=== PATIENT | male | born 1970 | race Caucasian/White ===

== ENCOUNTER 2018-05-01 21:23 | Emergency (ER) | payer BC ==
[2018-05-01 21:33] VITALS: BP 167/75; PULSE 60; RESP 18; TEMP 98.2
[2018-05-01] MEDS ORDERED: PROPARACAINE 0.5% OPHTH DROPS 15 ML BTL BOTH EYES STA (21:33)
[2018-05-01] MEDS ORDERED: ERYTHROMYCIN 5 MG/GM OPHTH OINT 3.5 GM TUBE BOTH EYES STA (21:35)
[2018-05-01] MEDS ORDERED: DIPH,PERTUS(ACELL)TETVAC-LF 0.5 ML VIAL IM ONE (22:06)
--- NOTE | 2018-05-01 22:26 | ED ---
Eye Problem HPI - General Chief complaint: Eye Problems Stated complaint: fb in eye Time Seen by Provider: 05/01/18 21:35 Source: patient Mode of arrival: ambulatory Limitations: no limitations - History of Present Illness Initial comments: [id number] male presents prescription with chief complaint left eye pain. Patient reports he was working with metal and believes a small piece of metal broke off of stools and came up into his left eye. He reports that he has had eye drainage pain since then. Patient reports no pain with extraocular eye movements. He denies wearing contacts. He was not wearing safety glasses at the time. - Related Data Home Medications Medication Instructions Recorded Confirmed No Known Home Medications 05/01/18 05/01/18 Allergies Allergy/AdvReac Type Severity Reaction Status Date / Time Penicillins Allergy Unknown Verified 05/01/18 21:33 Review of Systems ROS Statement: Those systems with pertinent positive or pertinent negative responses have been documented in the HPI. ROS Other: All systems not noted in ROS Statement are negative. Past Medical History Past Medical History: No Reported History History of Any Multi-Drug Resistant Organisms: None Reported Past Surgical History: Ear Surgery, Hernia Repair, Orthopedic Surgery Past Psychological History: No Psychological Hx Reported Smoking Status: Current every day smoker Past Alcohol Use History: Occasional Past Drug Use History: None Reported General Exam - General Exam Comments Initial Comments: 47-year-old male. Alert and oriented. Patient appears in no significant distress. Limitations: no limitations General appearance: alert, in no apparent distress Head exam: Present: atraumatic, normocephalic, normal inspection Eye exam: Present: normal appearance, PERRL, EOMI, conjunctival injection (Left eye conjunctival injection), other (Corneal abrasion noted on fluorescein eye exam. Area measures from the 12:00 to 4 o'clock position of the pupil.). Absent: scleral icterus, periorbital swelling ENT exam: Present: normal exam, mucous membranes moist Neck exam: Present: normal inspection. Absent: tenderness, meningismus, lymphadenopathy Respiratory exam: Present: normal lung sounds bilaterally. Absent: respiratory distress, wheezes, rales, rhonchi, stridor Cardiovascular Exam: Present: regular rate, normal rhythm, normal heart sounds. Absent: systolic murmur, diastolic murmur, rubs, gallop, clicks GI/Abdominal exam: Present: soft, normal bowel sounds. Absent: distended, tenderness, guarding, rebound, rigid Course Vital Signs 05/01/18 21:31 Temperature 98.2 F Pulse Rate 60 Respiratory 18 Rate Blood Pressure 167/75 O2 Sat by Pulse 98 Oximetry Medical Decision Making - Medical Decision Making Patient is a 47-year-old male who presents today with left eye pain. He reports he had a piece of metal tool come off and hit his eye. There is no evidence of retained foreign body after lifting the eyelids. Fluorescein eye exam does show corneal abrasion from the 12:00 to 4 o'clock position. The eye does have significant injection. After instilling proparacaine drops Patient had immediate relief. I discussed that putting the Patient on antibiotic eye ointment. He was also given updated tetanus shot. Patient has been advised follow-up promptly with ophthalmology. All questions answered and return parameters were discussed. Disposition Clinical Impression: Corneal abrasion, left Disposition: HOME SELF-CARE Condition: Good Instructions: Corneal Abrasion (ED) Additional Instructions: Patient advised to apply the eye ointment to the eye every 4 hours. Follow-up with ophthalmology. If symptoms continue persist or worsen please return to emergency department for reevaluation. Follow-up with ophthalmology on Friday. Is patient prescribed a controlled substance at d/c from ED?: No Referrals: Jovanny Salinas MD [Primary Care Provider] - 1-2 days Mary Kelly MD [STAFF PHYSICIAN] - 1-2 days Time of Disposition: 22:26
== END 2018-05-01 22:50 | disposition home or self-care (01) ==
LOC: EC 21:23
DX: S05.02XA Injury of conjunctiva and corneal abrasion without foreign body, left eye, initial encounter (principal); F17.200 Nicotine dependence, unspecified, uncomplicated; Z23 Encounter for immunization; Z88.0 Allergy status to penicillin; W22.8XXA Striking against or struck by other objects, initial encounter; Y92.009 Unspecified place in unspecified non-institutional (private) residence as the place of occurrence of the external cause
CPT/HCPCS: 90471; 90715; 99282

== ENCOUNTER → 2018-05-06 | Outpatient (CLI) | payer BC ==
--- NOTE | 2018-05-06 18:13 | CT ---
EXAMINATION TYPE: CT orbits wo con DATE OF EXAM: 05/06/2018 COMPARISON: None HISTORY: left eye pain, r/o fb following injury [address] DLP: 429.4 mGycm Automated exposure control for dose reduction was used. FINDINGS: The orbital margins are intact. There is no evidence of retro-orbital mass. There is mucosal thickeni ng in the frontal sinuses. There is no evidence of a blowout fracture. I see no evidence of radiopaqu e foreign body. Zygomatic arches appear normal. Nasal bone appears intact. IMPRESSION: NO FRACTURE SEEN. MILD FRONTAL SINUSITIS. NO EVIDENCE OF A FOREIGN BODY.
== END | disposition home or self-care (01) ==
LOC: RADXRMAIN 17:44
PROVIDERS: ATTEND Ophthalmology
DX: H44.702 Unspecified retained (old) intraocular foreign body, nonmagnetic, left eye (principal)
CPT/HCPCS: 70480

== ENCOUNTER 2020-08-18 16:31 | Emergency (ER) | payer SELFPAY ==
[2020-08-18 17:51] VITALS: BP 135/86; PULSE 67; RESP 18; TEMP 98
--- NOTE | 2020-08-18 18:02 | ED ---
General Adult HPI - General Chief complaint: Skin/Abscess/Foreign Body Stated complaint: Metal in ear, [facility] Source: patient Mode of arrival: ambulatory Limitations: no limitations - History of Present Illness Initial comments: 50-year-old male presents emergency Department with chief complaint of right ear pain. Patient reports several days ago he was welding and he suspects a hot metal piece went into his right ear. Patient reports gradually his developed some white discharge from his right ear with slight pain when pulling on the auricle. Patient reports today he sneezed and now he can feel ear going in and out of his ear. He reports somewhat of mild pain at this time. Denies any fevers or chills. Denies any pain anterior posterior to the right ear. Denies any posterior auricular swelling or erythema. - Related Data Previous Rx's Medication Instructions Recorded Ciprofloxacin-Hc Otic Susp [Cipro 3 drops RIGHT EAR BID #1 bottle 08/18/20 Hc Otic Suspension] Allergies Allergy/AdvReac Type Severity Reaction Status Date / Time Penicillins Allergy Unknown Verified 08/18/20 17:49 Review of Systems ROS Statement: Those systems with pertinent positive or pertinent negative responses have been documented in the HPI. ROS Other: All systems not noted in ROS Statement are negative. Past Medical History Past Medical History: No Reported History History of Any Multi-Drug Resistant Organisms: None Reported Past Surgical History: Ear Surgery, Hernia Repair, Orthopedic Surgery Past Psychological History: No Psychological Hx Reported Smoking Status: Current every day smoker Past Alcohol Use History: Occasional Past Drug Use History: None Reported General Exam Limitations: no limitations General appearance: alert, in no apparent distress Head exam: Present: atraumatic, normocephalic, normal inspection Eye exam: Present: normal appearance, PERRL, EOMI Pupils: Present: normal accommodation ENT exam: Present: normal exam, normal oropharynx, mucous membranes moist, TM's normal bilaterally. Absent: normal external ear exam (Edematous right external auditory canal with slight white discharge. Ruptured tympanic membrane.) Neck exam: Present: normal inspection, full ROM. Absent: tenderness Respiratory exam: Present: normal lung sounds bilaterally. Absent: respiratory distress Cardiovascular Exam: Present: regular rate, normal rhythm, normal heart sounds Extremities exam: Present: normal inspection, full ROM, normal capillary refill. Absent: tenderness Back exam: Present: normal inspection, full ROM. Absent: tenderness, CVA tenderness (R), CVA tenderness (L) Neurological exam: Present: alert, oriented X3 Psychiatric exam: Present: normal affect, normal mood Skin exam: Present: warm, dry, intact, normal color Course Vital Signs 08/18/20 17:49 Temperature 98 F Pulse Rate 67 Respiratory 18 Rate Blood Pressure 135/86 O2 Sat by Pulse 98 Oximetry Medical Decision Making - Medical Decision Making 50-year-old male presents to emergency Department with a chief complaint of right-sided ear foreign body. On physical examination, ruptured right-sided tympanic membrane. Patient will be discharged with ciprofloxacin otic drops. Advised to follow-up with ENT specialist. Water precautions. Advised to avoid sneezing or Valsalva procedures. Strict return parameters were thoroughly discussed the patient was upsetting agreeable. Case discussed with Dr. Bateman. Disposition Clinical Impression: Perforated tympanic membrane Disposition: HOME SELF-CARE Condition: Stable Instructions (If sedation given, give patient instructions): Ruptured Eardrum (ED) Additional Instructions: Take prescribed medication as directed. Follow with an ENT specialist. Avoid water in the right ear. Attempt not to sneeze. Prescriptions: Ciprofloxacin-Hc Otic Susp [Cipro Hc Otic Suspension] 3 drops RIGHT EAR BID #1 bottle Is patient prescribed a controlled substance at d/c from ED?: No Referrals: Jovanny Salinas MD [Primary Care Provider] - 1-2 days Brennan Ty DO [Doctor of Osteopathic Medicine] - 1-2 days Time of Disposition: 18:01
== END 2020-08-18 18:25 | disposition home or self-care (01) ==
LOC: EC 16:31
DX: H66.91 Otitis media, unspecified, right ear (principal); H72.91 Unspecified perforation of tympanic membrane, right ear; F17.200 Nicotine dependence, unspecified, uncomplicated; Z88.0 Allergy status to penicillin
CPT/HCPCS: 99282

== ENCOUNTER 2020-09-14 07:19 | Day surgery (SDC) | payer OTHER ==
[2020-09-12 12:41] VITALS: BMI 30.4
[~2020-09-14 07:19] MED LIST: CLINDAMYCIN 600 MG in DEXTROSE 5% IN WATER 50 ML IVPB PRN; DEXAMETHASONE SOD PHOSPHATE 4 MG/ML 1 ML VIAL IV PRN; FAMOTIDINE 20 MG/2 ML VIAL IV PRN; ONDANSETRON 4 MG/2 ML VIAL IVP PRN; OXYMETAZOLINE 0.05% NASL SPRAY 1 SPRAY BOTTLE EA NOSTRIL PRN
[2020-09-14] MEDS ORDERED: LACTATED RINGERS 1,000 ML IV ONE (07:56)
[2020-09-14] MEDS ORDERED: LIDOCAINE 1% (10MG/ML) FOR IV START INTRADERMA ONE (07:56)
[2020-09-14] MEDS ORDERED: CLIDINIUM-chlordiazePOXIDE (2.5-5 MG) CAP ONE (08:32)
[2020-09-14] MEDS ORDERED: LIDOCAINE 1% INJ 10MG/ML (20 ML MDV) ONE (08:32)
[2020-09-14] MEDS ORDERED: fentaNYL (PF) 50 MCG/ML 2 ML AMP ONE (08:32)
[2020-09-14] MEDS ORDERED: PROPOFOL 10 MG/ML 20 ML VIAL IV ONE (08:32)
[2020-09-14] MEDS ORDERED: OXYMETAZOLINE 0.05% NASL SPRAY 1 SPRAY BOTTLE MISCELLANE ONE (09:03)
[2020-09-14] MEDS ORDERED: EPINEPHrine 1 MG/ML (MDV) 30 ML VIAL TOPICAL ONE (09:20)
[2020-09-14] MEDS ORDERED: HYDROmorphone 0.5 MG/0.5 ML SYRINGE IVP ONE ×4 (09:52→10:11)
[2020-09-14 09:57] VITALS: TEMP 96.9
--- NOTE | 2020-09-14 10:16 | P.OP ---
Date of Procedure: 09/14/20 Preoperative Diagnosis: Foreign body left proximal ear canal with tympanic membrane damage and an attic retraction Postoperative Diagnosis: Same Procedure(s) Performed: Direct microscopic removal of a foreign body of the proximal ear canal and tympanic membrane with right-sided tympanoplasty and lysis of middle ear adhesions. Examination of the attic retraction pocket with no evidence of cholesteatoma Anesthesia: MARYA Surgeon: Brennan Ty Estimated Blood Loss (ml): 0 Pathology: none sent Condition: stable Disposition: PACU Indications for Procedure: This patient had a injury to the right ear with a piece indwelling material embedded in the proximal portion of the right ear canal with involvement of the tympanic membrane inferiorly. Incidentally we discovered a retraction pocket in the attic and this area is to be explored. Operative Findings: Patient had a piece of metal embedded in the inferior portion of the tympanic membrane along the floor the proximal ear canal. Patient also had a retraction pocket in the attic but no signs of cholesteatoma was noted. There was evidence of adhesions in the middle ear space and damage from the hot metal from welding causing damage to the tympanic membrane resulting in a tympanic membrane perforation 1 foreign-body was removed. Description of Procedure: Patient was taken to the operative room and placed in the supine position. A general inhalation anesthetic was administered to the patient by mask and subsequently intubated with a cuffed endotracheal tube by the department of anesthesia with a functioning IV line in place the patient was monitored thr oughout the entire case by the department of anesthesia. With a 250 mm Zeiss microscope the right ear was visualized and examined completely. There were 2 issues noted. The first issue was a retraction pocket in the attic. I explore that adequate retraction pocket there is no signs of cholesteatoma noted. Inferiorly there was a piece of metal it was embedded through the tympanic membrane inferiorly and it was embedded into the proximal ear canal inferiorly. With use of microscope and several different your instruments including a right angle pick house pick etc. we remove the metal that was embedded along the annulus and inferior tympanic membrane. We elevated the inferior tympanomeatal flap and expose the anterior portion of the the middle ear space. We lysed several adhesions and we freshen the perforation edges with a house pick. We placed a automotive buyer design gel for the tympanic membrane was laid back into position. The whole was closed with a automotive buyer design graft and middle ear adhesions were lysed appropriately. Again the attic retraction pocket was explored and there was no evidence of cholesteatoma. The packing was placed along the annulus to hold the tympanic membrane in place. The patient tolerated this well and follow-up will be in the office in 1 week. I'm recommending a repeat computed tomography scan in 3-6 months to better evaluate the attic retraction pocket to confirm no new occurrence of cholesteatoma. Identification
[2020-09-14 10:43] VITALS: RESP 20
[2020-09-14 11:27] VITALS: BP 144/76; PULSE 48
== END 2020-09-14 12:00 | disposition home or self-care (01) ==
LOC: OR 07:19
PROVIDERS: ATTEND Otolaryngology
DX: T16.1XXA Foreign body in right ear, initial encounter (principal); X58.XXXA Exposure to other specified factors, initial encounter; F17.200 Nicotine dependence, unspecified, uncomplicated; Z79.52 Long term (current) use of systemic steroids; Z79.899 Other long term (current) drug therapy; Z88.0 Allergy status to penicillin
CPT/HCPCS: 69205; 69631; C1763; J0171; J1100; J2405; J2001; J3010; J2704; J1170

== ENCOUNTER 2021-08-19 06:03 | Emergency (ER) | payer OTHER ==
[2021-08-19 06:11] VITALS: BP 157/90; PULSE 66; RESP 16; TEMP 98.2
[2021-08-19] MEDS ORDERED: HYDROmorphone 1 MG/ML 1 ML SYRINGE IM STA (06:32)
--- NOTE | 2021-08-19 06:37 | ED ---
ENT HPI - General Chief complaint: Dental/Oral Stated complaint: LT-sided facial swelling Time Seen by Provider: 08/19/21 06:12 Source: patient, RN notes reviewed Mode of arrival: ambulatory Limitations: no limitations - History of Present Illness Initial comments: This a 51-year-old male presents emergency Department chief complaint of dental pain, left-sided facial pain. Patient states he had chipped tooth that has not been bothersome in the past one to 2 days increasing left-sided facial swallow pain. Patient states that the pain is unbearable. Patient is on pain medications. Patient states that he's had no fevers chills he denies any drainage and difficulty swallowing patient offers no complaints. - Related Data Home Medications Medication Instructions Recorded Confirmed Triamterene-Hctz 37.5-25Mg 1 cap PO DAILY 09/12/20 09/14/20 [Dyazide 37.5-25 Capsule] predniSONE [Deltasone] 20 mg PO DAILY 09/12/20 09/14/20 Previous Rx's Medication Instructions Recorded Clindamycin HCl 300 mg PO Q6HR #40 cap 08/19/21 Ketorolac [Toradol] 10 mg PO Q8HR #15 tab 08/19/21 Allergies Allergy/AdvReac Type Severity Reaction Status Date / Time Penicillins Allergy Unknown Verified 08/19/21 06:06 Review of Systems ROS Statement: Those systems with pertinent positive or pertinent negative responses have been documented in the HPI. ROS Other: All systems not noted in ROS Statement are negative. Past Medical History Past Medical History: No Reported History History of Any Multi-Drug Resistant Organisms: None Reported Past Surgical History: Ear Surgery, Hernia Repair, Orthopedic Surgery Additional Past Surgical History / Comment(s): RIGHT GREAT TOE SURGERY, BELATERAL INGUINAL HERNIA REPAIR , BMT AT AGE 12 Past Anesthesia/Blood Transfusion Reactions: No Reported Reaction Past Psychological History: No Psychological Hx Reported Smoking Status: Current every day smoker Past Alcohol Use History: None Reported Past Drug Use History: Marijuana - Past Family History Mother Family Medical History: No Reported History General Exam Limitations: no limitations General appearance: alert, in no apparent distress Head exam: Present: atraumatic, normocephalic, normal inspection Eye exam: Present: normal appearance, PERRL, EOMI. Absent: scleral icterus, conjunctival injection, periorbital swelling ENT exam: Present: normal exam, mucous membranes moist Neck exam: Present: normal inspection, full ROM. Absent: tenderness, meningismus, lymphadenopathy Respiratory exam: Present: normal lung sounds bilaterally. Absent: respiratory distress, wheezes, rales, rhonchi, stridor Cardiovascular Exam: Present: regular rate, normal rhythm, normal heart sounds. Absent: systolic murmur, diastolic murmur, rubs, gallop, clicks Course Vital Signs 08/19/21 06:07 Temperature 98.2 F Pulse Rate 66 Respiratory 16 Rate Blood Pressure 157/90 O2 Sat by Pulse 98 Oximetry Medical Decision Making - Medical Decision Making Patient was started on oral antibiotics for underlying infection. Advised follow-up with dentist and return for any worsening changes symptoms. Disposition Clinical Impression: Toothache, Dental abscess Disposition: HOME SELF-CARE Condition: Stable Instructions (If sedation given, give patient instructions): Dental Abscess (ED), Toothache (ED) Additional Instructions: Please return to the Emergency Department if symptoms worsen or any other concerns. Prescriptions: Clindamycin HCl 300 mg PO Q6HR #40 cap Ketorolac [Toradol] 10 mg PO Q8HR #15 tab Is patient prescribed a controlled substance at d/c from ED?: No Referrals: Jovanny Salinas MD [Primary Care Provider] - 1-2 days Time of Disposition: 06:37
[2021-08-19] MEDS ORDERED: CLINDAMYCIN 150 MG CAP PO STA (06:40)
== END 2021-08-19 06:49 | disposition home or self-care (01) ==
LOC: EC 06:03
DX: K04.7 Periapical abscess without sinus (principal); F17.200 Nicotine dependence, unspecified, uncomplicated; F12.90 Cannabis use, unspecified, uncomplicated; Z88.0 Allergy status to penicillin
CPT/HCPCS: 99283; 96372; J1170

== ENCOUNTER 2022-01-10 19:15 | Inpatient (IN) | payer BC, MEDICAID, OTHER ==
--- NOTE | 2022-01-10 20:27 | ED ---
General Adult HPI - General Chief complaint: Psychiatric Symptoms Stated complaint: Anxiety Time Seen by Provider: 01/10/22 20:20 Source: patient, family, RN notes reviewed Mode of arrival: ambulatory Limitations: no limitations - History of Present Illness Initial comments: Patient is a pleasant 51-year-old male presenting to the emergency department c oncerns were anger and aggression. Patient also complains of anxiety. Symptoms have been building up for months. Patient has chronic pain and feels it makes his symptoms worse. Patient does not answer if he has thoughts of self-harm. Patient denies homicidal thoughts and states he does not want to hurt people. Patient did punch a wall twice yesterday. Patient does use marijuana to help with this pain. Patient denies alcohol or other street drug use. No hallucinations. - Related Data Home Medications Medication Instructions Recorded Confirmed Triamterene-Hctz 37.5-25Mg 1 cap PO DAILY 09/12/20 01/11/22 [Dyazide 37.5-25 Capsule] predniSONE [Deltasone] 20 mg PO DAILY 09/12/20 01/11/22 Previous Rx's Medication Instructions Recorded Ketorolac [Toradol] 10 mg PO Q8HR #15 tab 08/19/21 clindamycin HCL [Clindamycin HCl] 300 mg PO Q6HR #40 cap 08/19/21 Allergies Allergy/AdvReac Type Severity Reaction Status Date / Time Penicillins Allergy Unknown Verified 01/11/22 06:27 Review of Systems ROS Statement: Those systems with pertinent positive or pertinent negative responses have been documented in the HPI. ROS Other: All systems not noted in ROS Statement are negative. Constitutional: Denies: fever Eyes: Denies: eye pain ENT: Denies: ear pain Respiratory: Denies: cough Cardiovascular: Denies: chest pain Endocrine: Denies: fatigue Gastrointestinal: Denies: abdominal pain Genitourinary: Denies: dysuria Musculoskeletal: Denies: back pain Skin: Denies: rash Neurological: Denies: weakness Psychiatric: Reports: as per HPI Past Medical History Past Medical History: No Reported History Additional Past Medical History / Comment(s): crps History of Any Multi-Drug Resistant Organisms: None Reported Past Surgical History: Ear Surgery, Hernia Repair, Orthopedic Surgery Additional Past Surgical History / Comment(s): RIGHT GREAT TOE SURGERY, BELATERAL INGUINAL HERNIA REPAIR , BMT AT AGE 12 Past Anesthesia/Blood Transfusion Reactions: No Reported Reaction Past Psychological History: No Psychological Hx Reported Smoking Status: Current every day smoker Past Alcohol Use History: None Reported Past Drug Use History: Marijuana - Past Family History Mother Family Medical History: No Reported History General Exam Limitations: no limitations General appearance: alert, in no apparent distress Head exam: Present: normocephalic Eye exam: Present: normal appearance Respiratory exam: Present: normal lung sounds bilaterally Cardiovascular Exam: Present: regular rate, normal rhythm Extremities exam: Present: other (Left hand abrasions wrapped) Neurological exam: Present: alert Psychiatric exam: Present: anxious (Patient does appear mildly anxious) Skin exam: Present: normal color Course Vital Signs 01/10/22 01/11/22 01/11/22 20:14 06:17 06:42 Temperature 97.8 F 97.7 F Pulse Rate 68 77 Pulse Rate [ 50 L Left Sitting] Respiratory 20 15 15 Rate Blood Pressure 131/72 129/66 Blood Pressure 136/77 [Left Arm Sitting] O2 Sat by Pulse 98 99 96 Oximetry Medical Decision Making - Lab Data Lab Results 01/10/22 01/10/22 01/11/22 Range/Units 22:55 22:55 04:27 Urine Color Yellow Urine Appearance Clear (Clear) Urine pH 5.5 (5.0-8.0) Ur Specific [place] 1.012 (1.001-1.035) Urine Protein Negative (Negative) Urine Glucose (UA) Negative (Negative) Urine Ketones Negative (Negative) Urine Blood Negative (Negative) Urine Nitrite Negative (Negative) Urine Bilirubin Negative (Negative) Urine Urobilinogen <2.0 (<2.0) mg/dL Ur Leukocyte Esterase Negative (Negative) Urine Opiates Screen Not Detected (NotDetected) Ur Oxycodone Screen Not Detected (NotDetected) Urine Methadone Screen Not Detected (NotDetected) Ur Propoxyphene Screen Not Detected (NotDetected) Ur Barbiturates Screen Not Detected (NotDetected) U Tricyclic Antidepress Not Detected (NotDetected) Ur Phencyclidine Scrn Not Detected (NotDetected) Ur Amphetamines Screen Not Detected (NotDetected) U Methamphetamines Scrn Not Detected (NotDetected) U Benzodiazepines Scrn Not Detected (NotDetected) Urine Cocaine Screen Not Detected (NotDetected) U Marijuana (THC) Screen Detected H (NotDetected) Coronavirus (PCR) Not Detected (Not Detectd) Disposition Clinical Impression: Depression, Acute anxiety Disposition: TRANSFER TO PSYCH HOSP/UNIT Is patient prescribed a controlled substance at d/c from ED?: No
[2022-01-10 23:55] LABS: Amphetamine Screen,Urine Not Detected (NotDetected); Barbiturate Screen,Urine Not Detected (NotDetected); Benzodiazepines Screen,Urine Not Detected (NotDetected); Cocaine Screen,Urine Not Detected (NotDetected); Methadone Screen, Urine Not Detected (NotDetected); Opiate Screen,Urine Not Detected (NotDetected); Phencyclidine Screen,Urine Not Detected (NotDetected); Tricyclic Antidepressant,Urine Not Detected (NotDetected); Urn Cannabinoid Scrn Detected (NotDetected)
[2022-01-10 23:56] LABS: Oxycodone Screen, Urine Not Detected (NotDetected)
[2022-01-11] MEDS ORDERED: MAGNESIUM HYDROXIDE 2,400 MG/10 ML CUP PO PRN (05:55)
[2022-01-11] MEDS ORDERED: ACETAMINOPHEN TAB 325 MG TAB PO PRN (05:55)
[2022-01-11] MEDS ORDERED: MAG HYDROX/AL HYDROX/SIMETH 30 ML CUP PO PRN (05:55)
[2022-01-11] MEDS ORDERED: hydrOXYzine pamoate 25 MG CAP PO PRN (05:57)
[2022-01-11] MEDS ORDERED: hydrOXYzine HCL 50 MG/ML 1 ML VIAL IM PRN (05:57)
[2022-01-11] MEDS ORDERED: OLANZapine 10 MG VIAL IM PRN (05:59)
[2022-01-11] MEDS ORDERED: OLANZapine 5 MG TAB PO PRN (05:59)
[2022-01-11 06:38] LABS: Appearance,Urine Clear (Clear); Bilirubin,Urine Negative (Negative); Blood,Urine Negative (Negative); Color,Urine Yellow; Glucose,Urine (UA) Negative (Negative); Ketones,Urine Negative (Negative); Leukocyte Esterase,Urine Negative (Negative); Nitrite,Urine Negative (Negative); PH, Urine 5.5 (5.0-8.0); Protein,Urine Negative (Negative); Specific Gravity,Urine 1.012 (1.001-1.035); Urobilinogen,Urine <2.0 mg/dL (<2.0)
[2022-01-11] MEDS ORDERED: ARIPiprazole 5 MG TAB PO STA (10:00)
[2022-01-11] MEDS: NICOTINE 14MG/24HR PATCH TRANSDERM SCH (10:27)
[2022-01-11] MEDS: GABAPENTIN 400 MG CAP PO SCH ×2 (10:34→10:46)
[2022-01-11] MEDS: DULoxetine HCL 30 MG CAPSULE.DR PO SCH ×3 (10:35→21:35)
[2022-01-11] MEDS ORDERED: DULoxetine HCL 30 MG CAPSULE.DR PO STA (10:55)
--- NOTE | 2022-01-11 11:26 | P.HP ---
Psychiatric H&P - . H&P Date: 01/11/22 History & Physical: Allergies Allergy/AdvReac Type Severity Reaction Status Date / Time Penicillins Allergy Unknown Verified 01/11/22 06:27 Vital Signs Temp 97.7 F 01/11/22 06:42 Pulse 50 L 01/11/22 06:42 Resp 15 01/11/22 06:42 BP 136/77 01/11/22 06:42 Pulse Ox 96 01/11/22 06:42 FiO2 Intake & Output 01/10/22 01/11/22 01/11/22 18:59 06:59 18:59 Weight 106.594 kg 105.432 kg Laboratory Last Values Urine Color Yellow 01/10/22 22:55 Urine Appearance Clear (Clear) 01/10/22 22:55 Urine pH 5.5 (5.0-8.0) 01/10/22 22:55 Ur Specific [place] 1.012 (1.001-1.035) 01/10/22 22:55 Urine Protein Negative (Negative) 01/10/22 22:55 Urine Glucose (UA) Negative (Negative) 01/10/22 22:55 Urine Ketones Negative (Negative) 01/10/22 22:55 Urine Blood Negative (Negative) 01/10/22 22:55 Urine Nitrite Negative (Negative) 01/10/22 22:55 Urine Bilirubin Negative (Negative) 01/10/22 22:55 Urine Urobilinogen <2.0 mg/dL (<2.0) 01/10/22 22:55 Ur Leukocyte Esterase Negative (Negative) 01/10/22 22:55 Urine Opiates Screen Not Detected (NotDetected) 01/10/22 22:55 Ur Oxycodone Screen Not Detected (NotDetected) 01/10/22 22:55 Urine Methadone Screen Not Detected (NotDetected) 01/10/22 22:55 Ur Propoxyphene Screen Not Detected (NotDetected) 01/10/22 22:55 Ur Barbiturates Screen Not Detected (NotDetected) 01/10/22 22:55 U Tricyclic Antidepress Not Detected (NotDetected) 01/10/22 22:55 Ur Phencyclidine Scrn Not Detected (NotDetected) 01/10/22 22:55 Ur Amphetamines Screen Not Detected (NotDetected) 01/10/22 22:55 U Methamphetamines Scrn Not Detected (NotDetected) 01/10/22 22:55 U Benzodiazepines Scrn Not Detected (NotDetected) 01/10/22 22:55 Urine Cocaine Screen Not Detected (NotDetected) 01/10/22 22:55 U Marijuana (THC) Screen Detected (NotDetected) H 01/10/22 22:55 Coronavirus (PCR) Not Detected (Not Detectd) 01/11/22 04:27 01/11/22 11:26 IDENTIFYING DATA: Patient is a , on [employer] 51-year-old male with no significant psychiatric history presents to the hospital with increased anxiety and anger. HPI: Patient presented to the hospital on 01/11/2022, brought into the emergency department on his own volition for psychiatric evaluation for anger. It was recommended to come to the emergency department by his orthopedic surgeon Dr Rogers. The patient signed himself voluntarily on to the psychiatric unit. Patient reports that he felt that his anger has been building up over the past year. 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 He does report significant symptoms of depression including anhedonia, poor concentration, very poor sleep, decreased appetite, excessive guilt, as well as passive thoughts of "not wanting to be here anymore." He however denies any active suicidal thoug hts, intentions, and/or plans. He reports no prior attempts at suicide. The patient reports that he does have a significant history of physical outbursts where he would punch adan however has not done so since he was a teenager. He reports that he did punch the wall yesterday and hurt his hand. He reports he did this in order to "have a release from all the frustration." In regards to other mood symptoms, the patient denies any significant symptoms of bipolar disorder. He denies any periods of excessive energy, grandiosity, mood lability, or increased goal-directed activity. In regards to psychotic symptoms, the patient denies any significant history of auditory or visual hallucinations. He denies any paranoia or other delusions. The patient expresses that he wants to have his anger under control so that he would no longer have any more outbursts. He subsequently admitted for further evaluation and treatment. PAST PSYCHIATRIC HISTORY: Patient states that he has never had any psychiatric diagnoses in the past. The patient is currently prescribed Cymbalta from his primary care physician. Patient denies any previous psychiatric hospitalizations. Patient denies any psychiatric outpatient follow-up. Patient denies any history of suicide attempts in the past. PMH: Past Medical History: No Reported History Additional Past Medical History / Comment(s): crps History of Any Multi-Drug Resistant Organisms: None Reported Past Surgical History: Ear Surgery, Hernia Repair, Orthopedic Surgery Additional Past Surgical History / Comment(s): RIGHT GREAT TOE SURGERY, BELATERAL INGUINAL HERNIA REPAIR , BMT AT AGE 12 Past Anesthesia/Blood Transfusion Reactions: No Reported Reaction Past Psychological History: No Psychological Hx Reported Smoking Status: Current every day smoker Past Alcohol Use History: None Reported Past Drug Use History: Marijuana ALLERGIES: Penicillins CHEMICAL DEPENDENCY HISTORY: The patient reports 1.5 packs per day of tobacco use. He reports he'll only drinks socially. He does endorse heavy marijuana use. He states that he uses marijuana in the morning and throughout the day in order to address his pain. He also reports ingesting edibles at bedtime in order to help with his sleep. He denies any other drug use. FAMILY PSYCHIATRIC/SUBSTANCE USE HISTORY: He reports no family psychiatric history. SOCIAL HISTORY: Patient was born and raised in [place], [place]. Prior to his injury, the patient was working as a heavy-duty household refrigeration mechanic. He is currently receiving Workmen's Comp. He is for 20 years to his Naheed. They have a 15-year-old son and 11-year-old daughter together. He reports no sikhism affiliation, history, or legal issues. MENTAL STATUS EXAM: General Appearance: Patient appears to be stated age is alert, directable, and attempts to cooperate. Patient appears to have slightly disheveled hygiene and grooming. Behavior: Patient is lying down in bed without any agitated behavior. Speech: Patient's speech is fluent and nonpressured. Hyperverbal. Mood/Affect: Patient reports their mood is "just so frustrated," affect is irritable and expansive Suicidality/Homicidality: Patient is denying any suicidal or homicidal ideation, intention, and/or plan. Perceptions: Patient denies any visual hallucinations and denies any auditory hallucinations Though content/process: There is no evidence of any delusional thought content and thought process is linear and goal-directed. Memory and concentration: AOX3, grossly intact for the purposes of this session. Can spell "WORLD" backwards Judgment and insight: poor STRENGTHS/WEAKNESSES: Strength is that the patient has significant family support. Weakness is that the patient has chronic pain issues. INTELLECT: average IMPRESSIONS: Major depressive disorder Rule out intermittent explosive disorder Cannabis use disorder Tobacco use disorder PLAN: -Patient is admitted under voluntary status to MHU for stabilization of psychiatric symptoms and safety. Patient signed adult voluntary form and medication consent and is placed in patient's chart. -Medications : Will start patient on Cymbalta 30 mg by mouth twice a day for depression/neuropathic pain Increase gabapentin to 600 mg by mouth 3 times a day for neuropathic pain and off label use for anxiety Start Abilify 5 mg by mouth daily for mood augmentation with plans to increase to 10 mg tomorrow Start Vistaril 50 mg by mouth at bedtime for insomnia -Zyprexa and Vistaril PRN for agitation/aggression -Patient was counselled on substance abuse however appears to be pre- contemplative regarding marijuana -Patient was informed of the risks, benefits and side effects of the medication and patient verbally consented to taking the medications. Patient signed med consent form and was placed in chart. -Internal Medicine consult to perform medical evaluation and physical. -NRT - nicotine patch -SW on board for discharge planning. Encourage patient to participate in groups to work on coping skills. 01/11/22 11:26
[2022-01-11] MEDS: NUCYNTA 50 MG PO SCH ×2 (11:30→21:35)
--- NOTE | 2022-01-11 11:41 | XR ---
EXAMINATION TYPE: XR hand limited LT DATE OF EXAM: 01/11/2022 COMPARISON: None HISTORY: Punched wall TECHNIQUE: 2 view left hand FINDINGS: Patient drain was unable to be removed for the exam. No acute fracture is identified. Joint spaces appear preserved. There may be mild diffuse soft tissue swelling. Follow up exams can be performed 7-10 days from acute trauma for continued pain. IMPRESSION: 1. No acute osseous abnormalities left hand 2. Mild diffuse soft tissue swelling
[2022-01-11] MEDS: GABAPENTIN 300 MG CAP PO SCH ×2 (15:54→21:34)
[2022-01-11] MEDS ORDERED: GABAPENTIN 400 MG CAP PO SCH (16:00)
[2022-01-11] MEDS ORDERED: GABAPENTIN 300 MG CAP PO SCH ×2 (21:00)
[2022-01-11] MEDS ORDERED: NUCYNTA 50 MG PO SCH (21:00)
[2022-01-11] MEDS: hydrOXYzine pamoate 25 MG CAP PO SCH (21:34)
[2022-01-12 07:03] VITALS: RESP 16
[2022-01-12] MEDS: ARIPiprazole 10 MG TAB PO SCH (08:52)
[2022-01-12] MEDS: GABAPENTIN 300 MG CAP PO SCH ×3 (08:52→21:26)
[2022-01-12] MEDS: DULoxetine HCL 30 MG CAPSULE.DR PO SCH ×2 (08:52→21:25)
[2022-01-12] MEDS: NICOTINE 14MG/24HR PATCH TRANSDERM SCH (08:52)
[2022-01-12] MEDS: NUCYNTA 50 MG PO SCH ×2 (09:22→21:26)
[2022-01-12 12:46] LABS: Basophils # (A) 0.1 k/uL (0-0.2); Basophils % (A) 1 %; Eosinophils # (A) 0.3 k/uL (0-0.7); Eosinophils % (A) 4 %; HCT 50.1 % (39.0-53.0); HGB 16.4 gm/dL (13.0-17.5); Lymphocytes # (A) 1.8 k/uL (1.0-4.8); Lymphocytes % (A) 23 %; MCH 30.7 pg (25.0-35.0); MCHC 32.7 g/dL (31.0-37.0); MCV 93.7 fL (80.0-100.0); Mean Platelet Volume 7.3; Monocytes # (A) 0.5 k/uL (0-1.0); Monocytes % (A) 7 %; Neutrophils # (A) 4.7 k/uL (1.3-7.7); Neutrophils % (A) 63 %; Platelet Count 275 k/uL (150-450); RBC 5.35 m/uL (4.30-5.90); RDW 13.4 % (11.5-15.5); WBC 7.5 k/uL (3.8-10.6)
[2022-01-12 14:03] LABS: ALT 12 U/L (4-49); AST 20 U/L (17-59); African American GFR (CKD) >90 (>60 ml/min/1.73 sqM); Albumin 4.1 g/dL (3.5-5.0); Alkaline Phosphatase 82 U/L (38-126); Anion Gap 10 mmol/L; Bilirubin, Delta 0.3 mg/dL (0.0-0.2); Bilirubin,Unconjugated 0.4 mg/dL (0.0-1.1); Blood Urea Nitrogen 11 mg/dL (9-20); Calcium 9.3 mg/dL (8.4-10.2); Carbon Dioxide 27 mmol/L (22-30); Chloride 100 mmol/L (98-107); Glucose 77 mg/dL (74-99); Non-African American GFR(CKD) >90 (>60 ml/min/1.73 sqM); Potassium 4.5 mmol/L (3.5-5.1); Sodium 137 mmol/L (137-145); Total Bilirubin 0.7 mg/dL (0.2-1.3); Total Protein 6.5 g/dL (6.3-8.2)
--- NOTE | 2022-01-12 15:06 | P.HPIM ---
History of Present Illness H&P Date: 01/12/22 Patient is a 51-year-old male with PMH of CPRS that presents to the ED for anger and aggression. He has been admitted to mental health unit for further management of his symptoms. [facility] physicians has been consulted for medical management of this patient. Patient reports punching a wall with his left fist. He reports abrasions over his left hand. He reports full range of motion. He reports getting a tetanus shot. He reports LLE neuropathic pain, chronic in nature, has MRI L spine scheduled in the outpatient setting. Otherwise, he has no complaints. He denies any headache, lower extremity edema, nausea or vomiting, fever or chills, cough, chest pain, shortness of breath, palpitations, changes in urination or bowel habits. No changes in appetite or weight. He denies any dizziness, numbness/weakness/tingling of extremities. His vital signs are currently within normal limits. He was initially tachycardic when he came to the ED. General: [non toxic], [no distress], [appears at stated age] Derm: [warm], [dry] Head: [atraumatic], [normocephalic], [symmetric] Eyes: [EOMI], [no lid lag], [anicteric sclera] Mouth: [no lip lesion], [mucus membranes moist] Cardiovascular: [S1S2 reg], [no murmur], [positive posterior tibial pulse bilateral], Lungs: [CTA bilateral], [no rhonchi, no rales] , [no accessory muscle use] Abdominal: [soft], [ nontender to palpation], [no guarding], [no appreciable organomegaly] Ext: [no gross muscle atrophy], [abrasions over the left hand with soft tissue swelling, full range of motion], [no contractures] Neuro: [ CN II-XI grossly intact], [no focal neuro deficits] Psych: [Alert], [oriented], [appropriate affect] #Left hand abrasion #Low TSH #Marijuana use #Smoker Patient has been encouraged left hand elevation for his swelling. Patient has been encouraged to wash his hands regularly with soap. Bacitracin will be ordered for application to the abrasions. Patient has low TSH of 0.351. Free T3 and T4 has been ordered. Patient advised to quit illicit substances. Nicotine patch has been offered. Past Medical History Past Medical History: No Reported History Additional Past Medical History / Comment(s): crps History of Any Multi-Drug Resistant Organisms: None Reported Past Surgical History: Ear Surgery, Hernia Repair, Orthopedic Surgery Additional Past Surgical History / Comment(s): RIGHT GREAT TOE SURGERY, BELATERAL INGUINAL HERNIA REPAIR , BMT AT AGE 12 Past Anesthesia/Blood Transfusion Reactions: No Reported Reaction Past Psychological History: No Psychological Hx Reported Smoking Status: Current every day smoker Past Alcohol Use History: None Reported Past Drug Use History: Marijuana - Past Family History Mother Family Medical History: No Reported History Medications and Allergies Home Medications Medication Instructions Recorded Confirmed Type Triamterene-Hctz 37.5-25Mg 1 cap PO DAILY 09/12/20 01/11/22 History [Dyazide 37.5-25 Capsule] predniSONE [Deltasone] 20 mg PO DAILY 09/12/20 01/11/22 History Ketorolac [Toradol] 10 mg PO Q8HR #15 tab 08/19/21 01/11/22 Rx clindamycin HCL [Clindamycin HCl] 300 mg PO Q6HR #40 cap 08/19/21 01/11/22 Rx Allergies Allergy/AdvReac Type Severity Reaction Status Date / Time Penicillins Allergy Unknown Verified 01/11/22 06:27 Physical Exam Vitals: Vital Signs Temp Pulse Resp BP 01/12/22 07:02 97.4 F L 57 L 16 123/68 Results CBC & Chem 7: 01/12/22 11:36 01/12/22 11:36 Labs: Abnormal Lab Results - Last 24 Hours (Table) 01/12/22 Range/Units 11:36 Delta Bilirubin 0.3 H (0.0-0.2) mg/dL TSH 0.351 L (0.465-4.680) mIU/L
[2022-01-12] MEDS: BACITRACIN OINT 1 EACH PACKET TOPICAL SCH ×2 (15:39→21:28)
--- NOTE | 2022-01-12 15:43 | P.PN ---
Progress Note - Text Progress Note Date: 01/12/22 Clinical Problems: Major depressive disorder, rule out intermittent explosive disorder, cannabis use disorder, tobacco use, complex regional pain syndrome Interim history: I reviewed the medical record and interviewed the patient. We discussed circumstances that led to this hospitalization including his struggles with chronic pain and problems finding a mental health provider with whom he felt comfortable. He stated that since admission he has had no episodes of uncontrolled anger or angry outbursts. He is distressed by the change of visiting hours and not seeing his today. She inquired about his treatment and treatment plan. I reviewed Dr. Sloan treatment plan and explained that I do not recommend a change at this time. Mental status exam: He presented as a casually groomed 51-year-old male who was pleasant on approach. He made eye contact and attended to the interview. He had a bright facial expression. He is alert and oriented to person, place and time. He had psychomotor retardation and walks slowly with the aid of a cane. His speech was spontaneous with normal rate, volume and rhythm. His affect was anxious and slightly depressed. He denied suicidal ideation, wishes or homicidal ideation. He expressed feelings of hopelessness and helplessness over his chronic physical impairment and resulting unemployment. He did not express ideas reference, paranoid ideation or delusions. His sticking was abstract and associations were coherent, logical and goal directed. He denied hallucinations did not appear to responding to internal stimuli. Assessment: He is much less angry and irritable than on admission. He continues to have signs and symptoms of depression uncomplicated by suicidality. Plan: Continue inpatient treatment. Safety precautions. Continue Abilify 10 mg daily and Cymbalta 20 mg twice a day. Titrate his psychotropic medications as tolerated. Continue other medication as prescribed and managed by his chronic pain including Neurontin 600 mg 3 times a day, and Nucynta ER 50 mg twice a day. Encourage participation in therapeutic groups and activities. Evaluate clinical status response to treatment daily basis.
[2022-01-12] MEDS: hydrOXYzine pamoate 25 MG CAP PO SCH (21:26)
[2022-01-13 06:15] LABS: T4, Free (Free Thyroxine) 1.39 ng/dL (0.78-2.19)
[2022-01-13] MEDS: DULoxetine HCL 30 MG CAPSULE.DR PO SCH ×2 (08:09→21:06)
[2022-01-13] MEDS: NICOTINE 14MG/24HR PATCH TRANSDERM SCH (08:09)
[2022-01-13] MEDS: BACITRACIN OINT 1 EACH PACKET TOPICAL SCH ×3 (08:10→21:08)
[2022-01-13] MEDS: GABAPENTIN 300 MG CAP PO SCH ×3 (08:10→21:06)
[2022-01-13] MEDS: ARIPiprazole 10 MG TAB PO SCH (08:10)
[2022-01-13] MEDS: NUCYNTA 50 MG PO SCH ×2 (09:02→21:07)
--- NOTE | 2022-01-13 14:06 | P.PN ---
Progress Note - Text Progress Note Date: 01/13/22 Clinical Problems: Major depressive disorder, rule out intermittent explosive disorder, cannabis use disorder, tobacco use, complex regional pain syndrome Interim history: I reviewed the medical record and interviewed the patient. He feels "better" admission. He denied uncontrolled anger or irritability. He has had no anger outbursts since admission. He inquired about discharge and talked about missing his family. Mental status exam: He presented as a casually groomed 51-year-old male who was pleasant on approach. He made eye contact and attended to the interview. He had a bright facial expression. He is alert and oriented to person, place and time. He had psychomotor retardation and walks slowly with the aid of a cane. His speech was spontaneous with normal rate, volume and rhythm. His affect was anxious and slightly depressed. He denied suicidal ideation, wishes or homicidal ideation. He expressed feelings of hopelessness and helplessness over his chronic physical impairment and resulting unemployment. He did not express ideas reference, paranoid ideation or delusions. His sticking was abstract and associations were coherent, logical and goal directed. He denied hallucinations did not appear to responding to internal stimuli. Assessment: He is much less angry and irritable than on admission. He continues to have signs and symptoms of depression uncomplicated by suicidality. Plan: Continue inpatient treatment. Safety precautions. Continue Abilify 10 mg daily and Cymbalta 20 mg twice a day. Titrate his psychotropic medications as tolerated. Continue other medication as prescribed and managed by his chronic pain including Neurontin 600 mg 3 times a day, and Nucynta ER 50 mg twice a day. Encourage participation in therapeutic groups and activities. Evaluate clinical status response to treatment daily basis.
[2022-01-13 15:47] LABS: Chol/HDL Ratio 4.52 Ratio; LDL Cholesterol,Calculated 99.7 mg/dL (0.0-131.0); VLDL Calculation 17.86 mg/dL (5.00-40.00)
[2022-01-13] MEDS: hydrOXYzine pamoate 25 MG CAP PO SCH (21:06)
[2022-01-14 07:09] VITALS: BP 133/68; TEMP 97.1
[2022-01-14] MEDS: NUCYNTA 50 MG PO SCH (08:53)
[2022-01-14] MEDS: NICOTINE 14MG/24HR PATCH TRANSDERM SCH (08:53)
[2022-01-14] MEDS: ARIPiprazole 10 MG TAB PO SCH (08:53)
[2022-01-14] MEDS: DULoxetine HCL 30 MG CAPSULE.DR PO SCH (08:53)
[2022-01-14 08:54] VITALS: PULSE 76
[2022-01-14] MEDS: GABAPENTIN 300 MG CAP PO SCH (08:56)
[2022-01-14] MEDS: BACITRACIN OINT 1 EACH PACKET TOPICAL SCH (08:59)
--- NOTE | 2022-01-14 11:38 | P.DS ---
Providers Date of admission: 01/11/22 05:53 Expected date of discharge: 01/14/22 Attending physician: Fransico Sloan MD Consults: 01/11/22 05:55 Consult Physician Routine Consulting Provider: Vinnie French Consult Reason/Comments: For H & P for Medical Follow Up Do you want consulting provider notified?: Yes Primary care physician: Stated None - Discharge Diagnosis(es) (1) Major depressive disorder Current Visit: Yes Status: Acute Priority: High (2) Cannabis use disorder Current Visit: Yes Status: Chronic Priority: Medium (3) Tobacco use disorder Current Visit: Yes Status: Chronic Priority: Medium Hospital Course: Admission HPI: Patient is a , on Work[employer]'s Comp., 51-year-old male with no significant psychiatric history presents to the hospital with increased anxiety and anger. Patient presented to the hospital on 01/11/2022, brought into the emergency department on his own volition for psychiatric evaluation for anger. It was recommended to come to the emergency department by his orthopedic surgeon Dr Rogers. The patient signed himself voluntarily on to the psychiatric unit. Patient reports that he felt that his anger has been building up over the past year. 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 He does report significant symptoms of depression including anhedonia, poor concentration, very poor sleep, decreased appetite, excessive guilt, as well as passive thoughts of "not wanting to be here anymore." He however denies any active suicidal thoughts, intentions, and/or plans. He reports no prior attempts at suicide. The patient reports that he does have a significant history of physical outbursts where he would punch adan however has not done so since he was a teenager. He reports that he did punch the wall yesterday and hurt his hand. He reports he did this in order to "have a release from all the frustration." In regards to other mood symptoms, the patient denies any significant symptoms of bipolar disorder. He denies any periods of excessive energy, grandiosity, mood lability, or increased goal-directed activity. In regards to psychotic symptoms, the patient denies any significant history of auditory or visual hallucinations. He denies any paranoia or other delusions. The patient expresses that he wants to have his anger under control so that he would no longer have any more outbursts. He subsequently admitted for further evaluation and treatment. Patient states that he has never had any psychiatric diagnoses in the past. The patient is currently prescribed Cymbalta from his primary care physician. Patient denies any previous psychiatric hospitalizations. Patient denies any psychiatric outpatient follow-up. Patient denies any history of suicide attempts in the past. Hospital course: Upon admission to the unit patient was initially irritable, obstinate, and upset. Patient was however directable and agreeable to commence treatment. Patient got along well with other patients on the unit and followed unit protocol. Patient was compliant with the medications and denied any side effects throughout hospital course. Patient was started on Abilify, Vistaril, and Cymbalta. Furthermore the patient's gabapentin was increased. The patient signed himself voluntarily on the psychiatric unit. Patient spoke of his stressors and engaged in therapy both group and individual. Patient was also seen by medical team for history and physical exam. Over the course of hospitalization, the patient's Abilify was titrated and the patient tolerated the medication well. He displayed a significant improvement in regards to his sleep, appetite, depression, and anger. He became more polite and cooperative with staff and peers. On the day of discharge, the patient is not reporting any suicidal or homicidal ideation, intent or plan. He is denying any mood swings, anger, irritability. He has been in adherent with his medications and is not reporting any significant side effects at this time. He reports no auditory or visual hallucinations. He denies any paranoia or other delusions. He does report that the Neurontin increase was slightly sedating and would like to go back to his previously prescribed dose of 400 mg in the morning, and afternoon with only the 600 mg being at bedtime. The patient is more future and goal oriented and expresses strong desire to live for himself and for his family. I discussed at length the use of appropriate coping skills and appropriate outpatient follow-up. He was encouraged to be adherent with his medications and follow-up with his outpatient providers for mental health and for his physical health as well. The patient does have significant history of heavy marijuana use and was consequently great length on abstaining small substances including marijuana and tobacco. As the patient longer met criteria for continued inpatient psychiatric hospitalization, he was subsequently discharged. Mental status exam: General Appearance: Patient appears to be stated age is alert, pleasant, and cooperative. Patient is in no acute distress and has fair hygiene and grooming Behavior: Patient is calmly seated without any agitated behavior. Ambulates with a cane. Speech: Patient's speech is fluent and nonpressured. Mood/Affect: Patient reports their mood is "much better", affect is congruent and euthymic to bright. Suicidality/Homicidality: Patient denies having any suicidal or homicidal ideation intent or plan. Perceptions: Patient denies any auditory or visual hallucinations. Though content/process: There is no evidence of any delusional thought content and thought process is linear and goal-directed. Is future and goal oriented. Memory and concentration: AOX3, grossly intact for the purposes of this session. Can spell "WORLD" backwards correctly. Judgment and insight: Improved Impression: Major depressive disorder Cannabis use disorder Tobacco use disorder Plan: -Continue with discharge today as patient has improved and stabilized psychiatrically and is not currently an imminent threat to himself and/or others. Patient will remain at chronically elevated risk for harm to self and/or others due to his heavy marijuana use. -Continue medications: Abilify 10 mg by mouth daily for mood augmentation Cymbalta 30 mg by mouth twice a day for depression Habitrol patch for nicotine cessation Vistaril 50 mg by mouth at bedtime when necessary for insomnia/anxiety Continue gabapentin -Patient was counseled on the need for medication compliance and appropriate follow-up at mental health and also primary care for medical issues. Patient verbalized understanding and agreed. -Social work to arrange for and conduct family meeting to ensure safety upon discharge and answer any questions/concerns. Social work also to arrange for patients follow up appointments for psychiatric care along with follow up with primary care provider. -Patient counseled on abstaining from recreational drugs and marijuana and alcohol. Was informed/educated on the adverse effects on their physical and mental health. Patient verbally agreed and understood. -Patient was instructed to return to the hospital or seek immediate medical care if their psychiatric or medical symptoms do worsen or reoccur. -Psychoeducation and supportive therapy provided to patient. Risks and benefits of pharmacological treatment versus the risks and benefits of nontreatment weight and discussed. Informed consent discussion held. Common side effects of psychotropics discussed such as, but not limited to headache, GI disturbance, sexual dysfunction, movement disorders, sedation, and orthostatic hypotension. Life threatening and blackbox warnings of prescribed medications also discussed. Potential risks of operating a vehicle or heavy machinery discussed with patient at length. Advised on importance of compliance and a reliable and responsible manner. Patient advised to review FDA consumer labeling of all medications prior to taking. Patient verbalized understanding of potential risks, and agrees with current treatment plan. Patient advised to medically contact physician/emergency personnel if any acute changes in condition occur. Allergies Allergy/AdvReac Type Severity Reaction Status Date / Time Penicillins Allergy Unknown Verified 01/11/22 06:27 Laboratory Results WBC 7.5 k/uL (3.8-10.6) 01/12/22 11:36 RBC 5.35 m/uL (4.30-5.90) 01/12/22 11:36 Hgb 16.4 gm/dL (13.0-17.5) 01/12/22 11:36 Hct 50.1 % (39.0-53.0) 01/12/22 11:36 MCV 93.7 fL (80.0-100.0) 01/12/22 11:36 MCH 30.7 pg (25.0-35.0) 01/12/22 11:36 MCHC 32.7 g/dL (31.0-37.0) 01/12/22 11:36 RDW 13.4 % (11.5-15.5) 01/12/22 11:36 Plt Count 275 k/uL (150-450) 01/12/22 11:36 MPV 7.3 01/12/22 11:36 Neutrophils % 63 % 01/12/22 11:36 Lymphocytes % 23 % 01/12/22 11:36 Monocytes % 7 % 01/12/22 11:36 Eosinophils % 4 % 01/12/22 11:36 Basophils % 1 % 01/12/22 11:36 Neutrophils # 4.7 k/uL (1.3-7.7) 01/12/22 11:36 Lymphocytes # 1.8 k/uL (1.0-4.8) 01/12/22 11:36 Monocytes # 0.5 k/uL (0-1.0) 01/12/22 11:36 Eosinophils # 0.3 k/uL (0-0.7) 01/12/22 11:36 Basophils # 0.1 k/uL (0-0.2) 01/12/22 11:36 Sodium 137 mmol/L (137-145) 01/12/22 11:36 Potassium 4.5 mmol/L (3.5-5.1) 01/12/22 11:36 Chloride 100 mmol/L (98-107) 01/12/22 11:36 Carbon Dioxide 27 mmol/L (22-30) 01/12/22 11:36 Anion Gap 10 mmol/L 01/12/22 11:36 BUN 11 mg/dL (9-20) 01/12/22 11:36 Creatinine 0.76 mg/dL (0.66-1.25) 01/12/22 11:36 Est GFR (CKD-EPI)AfAm >90 (>60 ml/min/1.73 sqM) 01/12/22 11:36 Est GFR (CKD-EPI)NonAf >90 (>60 ml/min/1.73 sqM) 01/12/22 11:36 Glucose 77 mg/dL (74-99) 01/12/22 11:[address] Glu mg/dL 116 01/12/22 11:36 Hemoglobin A1c 5.7 % (0.0-6.0) 01/12/22 11:36 Calcium 9.3 mg/dL (8.4-10.2) 01/12/22 11:36 Total Bilirubin 0.7 mg/dL (0.2-1.3) 01/12/22 11:36 Conjugated Bilirubin 0.0 mg/dL (0.0-0.3) 01/12/22 11:36 Unconjugated Bilirubin 0.4 mg/dL (0.0-1.1) 01/12/22 11:36 Delta Bilirubin 0.3 mg/dL (0.0-0.2) H 01/12/22 11:36 AST 20 U/L (17-59) 01/12/22 11:36 ALT 12 U/L (4-49) 01/12/22 11:36 Alkaline Phosphatase 82 U/L (38-126) 01/12/22 11:36 Total Protein 6.5 g/dL (6.3-8.2) 01/12/22 11:36 Albumin 4.1 g/dL (3.5-5.0) 01/12/22 11:36 Triglycerides 89.30 mg/dL (0.00-149.00) 01/12/22 11:36 Cholesterol 151.00 mg/dL (0.00-200.00) 01/12/22 11:36 LDL Cholesterol, Calc 99.7 mg/dL (0.0-131.0) 01/12/22 11:36 VLDL Cholesterol, Calc 17.86 mg/dL (5.00-40.00) 01/12/22 11:36 HDL Cholesterol 33.40 mg/dL (40.00-60.00) L 01/12/22 11:36 Cholesterol/HDL Ratio 4.52 Ratio 01/12/22 11:36 TSH 0.351 mIU/L (0.465-4.680) L 01/12/22 11:36 Free T4 1.39 ng/dL (0.78-2.19) 01/12/22 11:36 Free T3 pg/mL 2.9 pg/ml (2.8-5.3) 01/12/22 11:36 Urine Color Yellow 01/10/22 22:55 Urine Appearance Clear (Clear) 01/10/22 22: Urine pH 5.5 (5.0-8.0) 01/10/22 22: Ur Specific Becket 1.012 (1.001-1.035) 01/10/22 22:55 Urine Protein Negative (Negative) 01/10/22 22:55 Urine Glucose (UA) Negative (Negative) 01/10/22 22:55 Urine Ketones Negative (Negative) 01/10/22 22:55 Urine Blood Negative (Negative) 01/10/22 22:55 Urine Nitrite Negative (Negative) 01/10/22 22:55 Urine Bilirubin Negative (Negative) 01/10/22 22:55 Urine Urobilinogen <2.0 mg/dL (<2.0) 01/10/22 22:55 Ur Leukocyte Esterase Negative (Negative) 01/10/22 22:55 Urine Opiates Screen Not Detected (NotDetected) 01/10/22 22:55 Ur Oxycodone Screen Not Detected (NotDetected) 01/10/22 22:55 Urine Methadone Screen Not Detected (NotDetected) 08/25/22 22:55 Ur Propoxyphene Screen Not Detected (NotDetected) 01/10/22 22:55 Ur Barbiturates Screen Not Detected (NotDetected) 01/10/22 22:55 U Tricyclic Antidepress Not Detected (NotDetected) 01/10/22 22:55 Ur Phencyclidine Scrn Not Detected (NotDetected) 01/10/22 22:55 Ur Amphetamines Screen Not Detected (NotDetected) 01/10/22 22:55 U Methamphetamines Scrn Not Detected (NotDetected) 01/10/22 22:55 U Benzodiazepines Scrn Not Detected (NotDetected) 01/10/22 22:55 Urine Cocaine Screen Not Detected (NotDetected) 01/10/22 22:55 U Marijuana (THC) Screen Detected (NotDetected) H 01/10/22 22:55 Coronavirus (PCR) Not Detected (Not Detectd) 01/11/22 04:27 Vital Signs Temp 97.1 F L 01/14/22 06:42 Pulse 76 01/14/22 08:52 Resp 16 01/14/22 06:42 BP 133/68 01/14/22 06:42 Pulse Ox 96 01/11/22 06:42 FiO2 Patient Condition at Discharge: Stable Plan - Discharge Summary New Discharge Prescriptions: New ARIPiprazole [Abilify] 10 mg PO DAILY 30 Days tab DULoxetine HCL [Cymbalta] 30 mg PO BID 30 Days cap Nicotine 14Mg/24Hr Patch [Habitrol] 1 patch TRANSDERM DAILY 14 Days patch hydrOXYzine pamoate [Vistaril] 50 mg PO HS PRN 30 Days cap PRN Reason: Insomnia/anxiety Gabapentin [Neurontin] 400 mg PO BID@0800,1400 cap Gabapentin [Neurontin] 600 mg PO HS cap Nucynta Er 50 mg PO BID Continue Triamterene-Hctz 37.5-25Mg [Dyazide 37.5-25 Capsule] 1 cap PO DAILY Discontinued Ketorolac [Toradol] 10 mg PO Q8HR #15 tab predniSONE [Deltasone] 20 mg PO DAILY clindamycin HCL [Clindamycin HCl] 300 mg PO Q6HR #40 cap Discharge Medication List Triamterene-Hctz 37.5-25Mg [Dyazide 37.5-25 Capsule] 1 cap PO DAILY 09/12/20 [History] ARIPiprazole [Abilify] 10 mg PO DAILY 30 Days tab 01/14/22 [Rx] DULoxetine HCL [Cymbalta] 30 mg PO BID 30 Days cap 01/14/22 [Rx] Gabapentin [Neurontin] 400 mg PO BID@0800,1400 cap 01/14/22 [Rx] Gabapentin [Neurontin] 600 mg PO HS cap 01/14/22 [Rx] Nicotine 14Mg/24Hr Patch [Habitrol] 1 patch TRANSDERM DAILY 14 Days patch 01/14/22 [Rx] Nucynta Er 50 mg PO BID 01/14/22 [Rx] hydrOXYzine pamoate [Vistaril] 50 mg PO HS PRN 30 Days cap 01/14/22 [Rx] Follow up Appointment(s)/Referral(s): [facility] - 01/16/22 10:30 am (01/16/2022 @ 10:30 AM with Jay Manuel. I) [facility] [NON-STAFF] - 1 Week Patient Instructions/Handouts: How to Stop Smoking (DC), Depression (DC) Activity/Diet/Wound Care/Special Instructions: Avoid the use of street drugs and alcohol. Take all prescriptions as prescribed. When you are in need of refills on your medications, please contact your medical provider and/or outpatient psychiatrist to have this done. Please go to scheduled outpatient appointment for aftercare treatment. If symptoms return or become worse, call the crisis line at and/or go to the nearest emergency room for evaluation. Discharge Disposition: HOME SELF-CARE
[2022-01-14] MEDS ORDERED: GABAPENTIN 400 MG CAP PO SCH (14:00)
[2022-01-14] MEDS ORDERED: GABAPENTIN 300 MG CAP PO SCH (21:00)
== END 2022-01-14 12:26 | disposition home or self-care (01) | DRG 881 ==
LOC: EC 19:15 → 3MHU 01-11 05:53
PROVIDERS: ADMIT Psychiatry & Neurology Psychiatry; ATTEND Psychiatry & Neurology Psychiatry
DX: F32.A Depression, unspecified (principal); R45.851 Suicidal ideations; G90.50 Complex regional pain syndrome I, unspecified; F12.10 Cannabis abuse, uncomplicated; F17.210 Nicotine dependence, cigarettes, uncomplicated; F41.9 Anxiety disorder, unspecified; G47.00 Insomnia, unspecified; S60.512A Abrasion of left hand, initial encounter; W22.01XA Walked into wall, initial encounter; Z79.899 Other long term (current) drug therapy; Z20.822 Contact with and (suspected) exposure to COVID-19
CPT/HCPCS: 80053; 80061; 80306; 81003; 82075; 82248; 83036; 84439; 84443; 84481; 85025; 87635; 99285

== ENCOUNTER → 2022-01-23 | Outpatient (CLI) | payer SELFPAY | END | disposition home or self-care (01) | LOC: RADXRMAIN 19:53 | DX: Z53.9 Procedure and treatment not carried out, unspecified reason (principal) ==

== ENCOUNTER → 2022-01-23 | Outpatient (CLI) | payer OTHER ==
--- NOTE | 2022-01-24 22:43 | MR ---
EXAMINATION TYPE: MR lumbar spine wo con DATE OF EXAM: 01/23/2022 COMPARISON: NONE HISTORY: Chronic low back pain. Left-sided sciatica. TECHNIQUE: Multiplanar, multisequence imaging of the lumbar spine is performed without IV contrast. FINDINGS: Sagittal images of the lumbar spine show vertebral body heights and alignment to appear sat isfactory. Multilevel disc desiccation. Moderate disc space narrowing L4-L5 level with heterogeneous Modic type II endplate changes and moderate anterior spurring. Moderate to severe disc space narrowi ng L5-S1 level with heterogeneous Modic type II endplate changes. Mild disc space narrowing L3-L4 lev el with heterogeneous Modic type II endplate changes and mild anterior spurring. The conus medullaris is normal in position and signal ending at L1-L2 disc space level. Axial images show T12-L1 and L1-L2 levels to appear within normal limits. Axial images at L2-L3 level show mild broad disc bulge mildly effacing anterior thecal sac with left foraminal extension causing mild anterior inferior neural foraminal narrowing. Patent right-sided janice ral foramina. Axial images at L3-L4 level shows mild to moderate broad disc protrusion mildly facing anterior theca l sac along with mild/moderate facet arthropathy causing mild bilateral anterior inferior neural fora deepti narrowing. Axial images at the L4-L5 level shows moderate broad-based posterior disc protrusion effacing anterio r thecal sac along with albo-qz-eofrzmsn facet arthropathy and ligamentum flavum hypertrophy effacing the left posterior lateral thecal sac. There is mild bilateral neural foraminal narrowing. Axial images at the L5-S1 level show [id number] facet arthropathy bilaterally. There is posteri or spur disc complex. Severe anterior spurring is seen left of midline. There is kgdy-is-uihjmnyk shlomo ateral anterior inferior neural foraminal narrowing with encroachment on both L5 nerve seen sagittal image or on the left and sagittal image 15 on the right due to foraminal/extraforaminal lateral spurr ing. Paraspinal muscle bulk is maintained. IMPRESSION: Multilevel degenerative changes in the mid to lower lumbar spine as detailed above.
== END | disposition home or self-care (01) ==
LOC: RADMRIMAIN 20:45
DX: M47.817 Spondylosis without myelopathy or radiculopathy, lumbosacral region (principal); M51.26 Other intervertebral disc displacement, lumbar region; M99.74 Connective tissue and disc stenosis of intervertebral foramina of sacral region
CPT/HCPCS: 72148

== ENCOUNTER → 2024-04-27 | Outpatient (CLI) | payer OTHER ==
--- NOTE | 2024-04-30 22:07 | CT ---
EXAMINATION TYPE: CT lower extremity LT w con DATE OF EXAM: 04/27/2024 9:06 AM COMPARISON: None. CLINICAL INDICATION: Male, 53 years old with history of D16.32 BENIGN NEOPLASM OF SHORT BONES OF LEFT LOWE, CRPS nerve damage Lt foot pain above knee down through foot TECHNIQUE: Axial images 3 mm thick sections. Reconstructed images in the coronal and sagittal plane. Three-D reconstructed images technologist are filmed and reviewed. Contrast used:100 mL of Isovue 300 with IV Contrast, (none if empty) Oral contrast used: (none if empty) FINDINGS: Acute fractures are evident. There is narrowing of the medial and lateral compartment joint spaces of the knee. Ankle mortise appears intact. Remaining joint spaces are normal Muscular density appears normal. Popliteal cyst may be present. No joint effusion is evident. IMPRESSION: 1. NO ACUTE OSSEOUS ABNORMALITY. [facility], , 04/30/2024 10:05 PM
== END | disposition home or self-care (01) ==
LOC: RADCTMAIN 08:08
PROVIDERS: ATTEND Podiatrist
DX: D16.32 Benign neoplasm of short bones of left lower limb (principal); G57.72 Causalgia of left lower limb
CPT/HCPCS: 73701; Q9967

== ENCOUNTER → 2024-08-14 | Outpatient (CLI) | payer OTHER ==
[2024-08-14 13:20] LABS: Basophils # (A) 0.06 X 10*3/uL (0.00-0.10); Basophils % (A) 0.9 %; Eosinophils # (A) 0.29 X 10*3/uL (0.04-0.35); Eosinophils % (A) 4.4 %; HCT 49.5 % (39.6-50.0); Lymphocytes # (A) 1.95 X 10*3/uL (0.90-5.00); Lymphocytes % (A) 29.5 %; MCH 32.1 pg (27.0-32.0); MCHC 34.3 g/dL (32.0-37.0); MCV 93.6 FL (80.0-97.0); Mean Platelet Volume 9.7 FL (9.5-12.2); Monocytes # (A) 0.61 X 10*3/uL (0.20-1.00); Monocytes % (A) 9.2 %; NRBC Per 100 WBC 0 X 10*3/uL (0.00-0.01); Neutrophils # (A) 3.68 X 10*3/uL (1.80-7.70); Neutrophils % (A) 55.8 %; Platelet Count 260 X 10*3/uL (140-440); RBC 5.29 X 10*6/uL (4.40-5.60); RDW 13.2 % (11.5-14.5)
[2024-08-14 13:35] LABS: ALT 17 U/L (10-49); AST 20 U/L (14-35); Alkaline Phosphatase 66 U/L (41-126); BUN/Creat Ratio 13.38 Ratio (12.00-20.00); Blood Urea Nitrogen 10.7 mg/dL (9.0-27.0); Calcium 9.3 mg/dL (8.7-10.3); Chloride 105 mmol/L (96-109); Chol/HDL Ratio 3.15 Ratio; Glucose 106 mg/dL (70-110); LDL Cholesterol,Calculated 81.7 mg/dL (0.0-131.0); Potassium 4.5 mmol/L (3.5-5.5); Sodium 141 mmol/L (135-145); Total Bilirubin 0.5 mg/dL (0.3-1.2); VLDL Calculation 17.94 mg/dL (5.00-40.00)
== END | disposition home or self-care (01) ==
LOC: LABWHC1 08:21
PROVIDERS: ATTEND Family Medicine
DX: Z00.00 Encounter for general adult medical examination without abnormal findings (principal)
CPT/HCPCS: 36415; 80053; 80061; 84443; 85025